=== PATIENT | female | born 1975 | race Caucasian/White ===

== ENCOUNTER 2017-05-06 09:49 | Emergency (ER) | payer OTHER | END 2017-05-06 10:00 | disposition home or self-care (01) | LOC: M ED 09:49 | DX: L02.211 Cutaneous abscess of abdominal wall (principal); L03.311 Cellulitis of abdominal wall; E66.01 Morbid (severe) obesity due to excess calories; Z88.5 Allergy status to narcotic agent | CPT/HCPCS: 99282 ==